=== PATIENT | female | born 1930 | race Caucasian/White ===

== ENCOUNTER → 2018-04-05 | Outpatient (CLI) | payer MEDICARE, OTHER | END | disposition home or self-care (01) | LOC: HKI 16:00 | DX: M70.62 Trochanteric bursitis, left hip (principal); I50.9 Heart failure, unspecified; I05.0 Rheumatic mitral stenosis; M10.9 Gout, unspecified; Z95.0 Presence of cardiac pacemaker; Z87.01 Personal history of pneumonia (recurrent) | CPT/HCPCS: 73502 ==